=== PATIENT | male | born 1955 | race Caucasian/White ===

== ENCOUNTER 2018-06-07 15:14 | Emergency (ER) | payer MEDICARE, MEDICAID ==
[~2018-06-07] VITALS: Ht 170.2 cm; Wt 65.0 kg
[~2018-06-07 15:14] MED LIST: ASPI325T31 PO; CARV12.579 PO; CLOP75TA19 PO; CNC30T PO; LANT3I SC; LISI-471 PO; NIFE60TA12 PO; PANT40TA4 PO; SEVE800T7 PO
[2018-06-07 15:17] VITALS: Ht 170.2 cm; Wt 65.0 kg
[2018-06-07] MEDS ORDERED: HYDROCODONE/APAP (5/325) TAB PO ONE (16:00)
[2018-06-07] MEDS ORDERED: DOXY100T21 PO (16:39)
[2018-06-07] MEDS ORDERED: SEVE800T7 PO (16:40)
[2018-06-07] MEDS ORDERED: [UNRECOGNIZED DRUG - CODE] PO (16:42)
[2018-06-07] MEDS ORDERED: ATOR10TA65 PO (16:43)
[2018-06-07] MEDS ORDERED: METO25TA4 PO (16:43)
[2018-06-07] MEDS ORDERED: INSU100I33 SC (16:44)
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
[2018-06-07 17:49] VITALS: BP 169/68; PULSE 63; RESP 16
== END 2018-06-07 17:51 | disposition home or self-care (01) ==
LOC: E/R 15:14
DX: S20.219A Contusion of unspecified front wall of thorax, initial encounter (principal); S39.012A Strain of muscle, fascia and tendon of lower back, initial encounter; S30.1XXA Contusion of abdominal wall, initial encounter; I12.0 Hypertensive chronic kidney disease with stage 5 chronic kidney disease or end stage renal disease; N18.6 End stage renal disease; E11.22 Type 2 diabetes mellitus with diabetic chronic kidney disease; I25.2 Old myocardial infarction; W05.0XXA Fall from non-moving wheelchair, initial encounter; Y92.9 Unspecified place or not applicable; Z99.2 Dependence on renal dialysis; Z95.1 Presence of aortocoronary bypass graft; Z79.4 Long term (current) use of insulin
CPT/HCPCS: 71250; 74176; 80048; 80076; 85025; 93005